=== PATIENT | female | born 1955 | race Caucasian/White ===

== ENCOUNTER → 2018-09-25 07:11 | Outpatient (CLI) | payer MEDICARE, OTHER, SELFPAY ==
[2018-09-25 09:41] LABS: Add Manual Diff / Slide Review NO; Basophils Percent Auto 0.8 % (0-2); Eosinophils Percent Auto 4.5 % (2-4); Hematocrit 37.6 % (36-46); Hemoglobin 12.6 g/dL (12.0-16.0); Lymphocytes Percent Auto 19.8 % (25-40); Mean Corpuscular HGB Conc 33.5 % (30-36); Mean Corpuscular Volume 86.7 fL (80-100); Monocytes Percent Auto 10.5 % (3-14); Neutrophils Absolute Auto 4200 /uL (3000-5900); Neutrophils Percent Auto 64.4 % (50-75); Platelet Count 186 X10^3/uL (150-400); Red Blood Cell Count 4.33 X10^6/uL (4.0-5.2); Red Cell Distribution Width 13.1 % (11.6-14.8); White Blood Cell Count 6.5 X10^3/uL (4.5-11.0)
[2018-09-25 09:51] LABS: Alanine Aminotransferase 53 IU/L (9-52); Albumin 4.3 g/dL (3.5-5.0); Albumin Globulin Ratio 1.5 (1.0-2.8); Alkaline Phosphatase 61 U/L (38-126); Aspartate Aminotransferase 42 IU/L (14-36); Bilirubin Total 0.4 mg/dL (0.2-1.3); Blood Urea Nitrogen 24 mg/dL (7-17); Calcium 9.4 mg/dL (8.4-10.2); Carbon Dioxide 32 mmol/L (22-32); Chloride 102 mmol/L (98-107); Cholesterol 160 mg/dL (140-199); Estimated Glomerular Filt Rate > 60.0 mL/min (>60); Globulin 2.9 g/dL (1.7-4.1); Glucose 85 mg/dL (80-110); HDL Cholesterol 43 mg/dL (40-60); HEMOLYSIS < 15 (0-50); LDL Cholesterol Calculated 104 mg/dL (<100); Potassium 3.9 mmol/L (3.4-5.1); Sodium 147 mmol/L (137-145); Total Protein 7.2 g/dL (6.3-8.2); Triglycerides 67 mg/dL (35-150)
--- NOTE | 2018-09-25 13:22 | DI.MG.S_ITS ---
Patient Name: TAY PAYNE date: 1955 Sex: F Attending Physician: Titi Indications: Date: 09/25/2018 07:59 At the request of: KRUPA HARVEY Procedure: MM screening mammo BI BILATERAL DIGITAL SCREENING MAMMOGRAM 3D/2D WITH CAD: 09/25/2018 CLINICAL: Routine screening. Family history of breast cancer. Comparison is made to exams dated: 09/15/2015 mammogram, 07/17/2013 mammogram, and 12/15/2010 mammogram - [facility]. The tissue of both breasts is extremely dense, which lowers the sensitivity of mammography. Current study was also evaluated with a Computer Aided Detection (CAD) system. There is architectural distortion in the right breast at 2 o'clock anterior depth. There is a focal asymmetry in the left breast at 1 o'clock middle depth. No other significant masses or calcifications are seen in either breast. IMPRESSION: INCOMPLETE: NEEDS ADDITIONAL IMAGING EVALUATION The architectural distortion in the right breast at 2 o'clock anterior depth is indeterminate. Additional views with possible ultrasound are recommended. The focal asymmetry in the left breast at 1 o'clock middle depth is indeterminate. Additional views with possible ultrasound are recommended. NOTE: For mammograms, a report in lay terms will be sent to the patient. Approximately 15% of breast malignancies will not be visualized mammographically. In the management of a palpable breast mass, a negative mammogram must not discourage biopsy of a clinically suspicious lesion. Electronically Signed By: Jessica mckeon/patel:09/25/2018 13:22:16 letter sent: Additional Imaging Needed ACR BI-RADS Category 0: Incomplete [id number] Continued Report - Page 2 of 2 Patient Name: TAY PAYNE date: 1955 Sex: F Attending Physician: Titi Indications: Date: 09/25/2018 07:59 At the request of: KRUPA HARVEY Procedure: MM screening mammo BI
[2018-09-25 23:15] LABS: Thyroid Stimulating Hormone 0.23 uIU/mL (0.47-4.68)
[2018-09-26 03:25] LABS: Free T3, Triiodothyronine Free 3.42 pg/mL (2.77-5.27); Free T4, Direct Thyroxine 1.53 ng/dL (0.78-2.19)
== END ==
PROVIDERS: Visit Provider Family Medicine
DX: Z12.31 Encounter for screening mammogram for malignant neoplasm of breast (principal); E03.9 Hypothyroidism, unspecified; Z80.3 Family history of malignant neoplasm of breast; Z79.1 Long term (current) use of non-steroidal anti-inflammatories (NSAID)
CPT/HCPCS: 36415; 77063; 77067; 80053; 80061; 84439; 84443; 84481; 85025

== ENCOUNTER → 2018-10-17 12:30 | Outpatient (CLI) | payer MEDICARE, OTHER, SELFPAY ==
--- NOTE | 2018-10-17 12:32 | DI.US.S_ITS ---
PROCEDURE: US BREAST LT LIMITED COMPARISON: [facility], BREAST RT LIMITED, 10/17/2018, 13:44. INDICATIONS: Abnormal screening Mammogram FINDINGS: IMPRESSION: Dictated by: Chele Grande M.D. on 10/17/2018 at 19:10 Approved by: Chele Grande M.D. on 10/17/2018 at 19:15
--- NOTE | 2018-10-17 12:32 | DI.US.S_ITS ---
LIMITED ULTRASOUND OF RIGHT BREAST AND AXILLA: 10/17/2018 CLINICAL: Patient returns for additional imaging over a suspected mass in the right breast. Comparison is made to exams dated: 10/17/2018 mammogram, 09/25/2018 mammogram, and 09/15/2015 mammogram - [facility]. Real-time and Doppler ultrasound of the right breast 2 o'clock, and axilla regions were performed. Bella scale images of the real-time examination were reviewed. There is 0.9 cm x 0.8 cm x 0.6 cm irregular mass with an indistinct margin in the right breast at 2 o'clock 4 cm from the nipple. This irregular mass is hypoechoic with posterior acoustic shadowing. This correlates with mammography findings. Color flow imaging demonstrates that there is no vascularity present. There also is 0.7 cm x 0.4 cm x 0.4 cm irregular mass with an indistinct margin in the right breast at 2 o'clock 4 cm from the nipple. This mass is immediately adjacent the larger mass described above. This irregular mass is hypoechoic with posterior acoustic shadowing. This correlates with mammography findings. Color flow imaging demonstrates that there is no vascularity present. Targeted ultrasound of the right axilla demonstrates morphologically normal lymph nodes. IMPRESSION: SUSPICIOUS OF MALIGNANCY 1) The 0.9 cm x 0.8 cm x 0.6 cm irregular mass in the right breast at 2 o'clock is at a moderate suspicion for malignancy. An ultrasound guided biopsy is recommended. 2) The 0.7 cm x 0.4 cm x 0.4 cm irregular mass in the right breast at 2 o'clock is at a moderate suspicion for malignancy. An ultrasound guided biopsy is recommended. These results and recommendations were discussed with the patient at the time of the exam by the [facility] Radiologist Dr. Ole Davidson in person. This exam was interpreted at Station ID: [id number]. Electronically Signed By: Chele Grande M.D. ecl/:10/17/2018 19:09:28 letter sent: Biopsy Required Ultrasound BI-RADS: 4c Suspicious abnormality - moderate concern but not classic for malignancy
--- NOTE | 2018-10-17 12:32 | DI.MG.S_ITS ---
BILATERAL DIGITAL DIAGNOSTIC MAMMOGRAM 3D/2D WITH ADDITIONAL VIEWS: 10/17/2018 CLINICAL: Additional evaluation requested from prior study. Comparison is made to exams dated: 09/25/2018 mammogram, 09/15/2015 mammogram, and 07/17/2013 mammogram - [facility]. The tissue of both breasts is extremely dense, which lowers the sensitivity of mammography. Previously identified architectural distortion in the right breast at 2 o'clock anterior depth on comparison screening mammograms persists with additional views. Previously noted focal asymmetry in the left breast at 1 o'clock middle depth on comparison screening mammogram resolves with additional views and likely represented superimposition of benign anatomic tissues. No other significant masses, calcifications, or other findings are seen in either breast. IMPRESSION: INCOMPLETE: NEEDS ADDITIONAL IMAGING EVALUATION 1) Previously identified architectural distortion in the right breast at 2 o'clock anterior depth on comparison screening mammograms persists with additional views. A targeted ultrasound is recommended for further evaluation, and will be performed immediately following this exam. 2) Previously noted focal asymmetry in the left breast at 1 o'clock middle depth on comparison screening mammogram resolves with additional views and likely represented superimposition of benign anatomic tissues. A targeted ultrasound is recommended for further evaluation, and will be performed immediately following this exam. This exam was interpreted at Station ID: [id number]. NOTE: For mammograms, a report in lay terms will be sent to the patient. Approximately 15% of breast malignancies will not be visualized mammographically. In the management of a palpable breast mass, a negative mammogram must not discourage biopsy of a clinically suspicious lesion. Electronically Signed By: Chele Grande M.D. ecl/:10/17/2018 13:36:08 letter sent: Additional Imaging Needed ACR BI-RADS Category 0: Incomplete [id number]
== END ==
PROVIDERS: PCP Family Medicine; Visit Provider Family Medicine
DX: R92.8 Other abnormal and inconclusive findings on diagnostic imaging of breast (principal); N63.12 Unspecified lump in the right breast, upper inner quadrant
CPT/HCPCS: 76642; 77066; G0279

== ENCOUNTER → 2018-11-14 11:21 | Outpatient (CLI) | payer MEDICARE, OTHER, SELFPAY ==
--- NOTE | 2018-11-14 | DI.MG.S_ITS ---
UNILATERAL RIGHT DIGITAL DIAGNOSTIC MAMMOGRAM POST-EXCISIONAL BIOPSY: 11/14/2018 CLINICAL: Post clip placement. Comparison is made to exams dated: 10/17/2018 mammogram, 09/25/2018 mammogram, and 09/15/2015 mammogram - [facility]. The tissue of right breast is extremely dense, which lowers the sensitivity of mammography. There is no visualized marker clip in the appropriate position in the right breast at 2 o'clock middle depth. IMPRESSION: POST PROCEDURE MAMMOGRAM FOR MARKER PLACEMENT Marker clip not visualized. If needed recommend localization of the biopsy site with ultrasound since the biopsied lesion remains quite sonographically visible. This exam was interpreted at Station ID: [id number]. NOTE: For mammograms, a report in lay terms will be sent to the patient. Approximately 15% of breast malignancies will not be visualized mammographically. In the management of a palpable breast mass, a negative mammogram must not discourage biopsy of a clinically suspicious lesion. Electronically Signed By: Mitul zarate/:11/14/2018 17:14:09 ACR BI-RADS Category Post-procedure mammogram for marker placement
--- NOTE | 2018-11-14 | PATH_ITS ---
[facility] Accession Number: [id number] . 01 Material submitted: . RIGHT BREAST . 01 Clinical history: . 2:00 POSITION 4CM FN . 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 Tumor grade: - Nuclear pleomorphism: Low (1/3). - Mitotic rate: Low (1/3). - Tubular differentiation: Little or none (3/3). 2. Size of invasive carcinoma: Single largest dimension of 2 mm in this sample, present in 2 cores. 3. Ductal carcinoma in situ: Absent. Atypical Lobular Hyperplasia: Focally present. 4. Calcifications: Absent. 5. Lymphatic invasion: Absent. 6. Prognostic markers: - Estrogen receptor: Positive (80% tumor cell staining; staining intensity: moderate to strong). - Progesterone receptor: Positive (60% tumor cells staining: staining intensity: Strong). - HER-2 status: Negative for protein overexpression by immunohistochemistry (0 to 1+). MRV/11/18/2018 . 01 Comment: The invasive carcinoma morphologically has a lobular growth pattern (single cells filing, intracytoplasmic vacuoles), but also demonstrates rare glands formation. In addition, E-cadherin is stronly positive (membranous staining). Hence, the invasive carcinoma has both ductal and lobular features. . Dr. Walls's office (reported to nurse Ms. Cruz) is notified of the preliminary findings on this case on 11/15/2018 at 4:15 pm). . 01 Electronically signed: . Marquita Bauer MD, Pathologist NPI- [id number] . 01 Gross description: . Received one formalin-filled container labeled with the patient's name and designated right breast 2 o'clock position 4 cm FN. The sample is received with a plastic filter, sample loose in container and consists of multiple light yellow-sykes to sykes-oliver portions of tissue which range in size from 0.3 x 0.3 x 0.2 cm to 1.3 x 0.3 x 0.2 cm. The specimen is entirely submitted in one cassette. Collection date: 11/14/2018. Collection time per container: 1:36. Total fixation time: 12 hours, up to 24. ([id number]) /FRR . 01 Microscopic: . The invasive carcinoma morphologically has a lobular growth pattern (single cells filing, intracytoplasmic vacuoles), but also demonstrates rare glands formation. . Prognostic markers and e-cadherin immunostains are performed. The external controls stain appropriately. The invasive carcinoma stains as follows: . E-cadherin: Retained (membranous pattern, in support of ductal differentiation); e-cadherin is lost in the in-situ neoplastic proliferation, in support of atypical lobular hyperplasia. Estrogen receptor: Positive (80% tumor cells positive, staining intensity: moderate to strong); positive internal controls. Progesterone receptor: Positive (60 % tumor cells positive, staining intensity: strong); positive internal controls. HER-2: Negative for protein overexpression (0-1+). . The scoring criteria for breast biomarkers by immunohistochemistry is based on the current ASCO/CAP guidelines (Corin et al, Arch Pathol Lab Med 2010: 134(6): 907-922 / Alexis MCKEON et al, Arch Pathol Lab Med 2014: 138(2): 241-256). Deparaffinized sections of formalin fixed tissue (along with appropriate positive controls) are incubated with the above antibody(s). Using the automated [place] stainer, tissue is incubated with the designated antibody* which is then localized by a non-biotin, dual polymer detection system. The external controls are reviewed for appropriate reactivity and found to be adequate. Results on the target cell population are indicated above. These tests have not been validated on decalcified tissue. * This test was developed and its performance characteristics determined by [facility]. It has not been cleared or approved by the U.S. Food and Drug Administration. The FDA has determined that such clearance or approval is not necessary. This test is used for clinical purposes. It should not be regarded as investigational or for research. . 01 Pathologist provided ICD-10: C50.211 . 01 CPT . 985978, M12149, 356379 Performed at: [address], [place], [place] [id number] MD Ranjit Cabral MD Phone: [phone]
--- NOTE | 2018-11-14 11:29 | DI.MRI.S_ITS ---
PROCEDURE: MR CERVICAL SPINE WO CON INDICATIONS: ongoing neck pain, TECHNIQUE: Noncontrast sagittal T1 spin echo and T2 fast spin echo, sagittal STIR, foraminal oblique sagittal T2 fast spin echo, and axial gradient echo or T2 fast spin echo through the cervical spine. COMPARISON: None. FINDINGS: Image quality: Excellent. Alignment and Curvature: There is normal bony alignment. There straightening normal cervical spine curvature. Bone Marrow: Minimal reactive endplate changes noted adjacent to the C5-C6 and C6-C7 disc. Spinal Cord: Visualized spinal cord has normal size and signal. No cerebellar tonsillar herniation. Paraspinous Soft Tissues: No paravertebral masses. Prevertebral soft tissues are normal in thickness. C2-C3: Loss of disc signal. No central stenosis. No neural foraminal narrowing. No neural impingement. C3-C4: Loss of disc signal. Mild, diffuse disc bulge. Mild narrowing of the central canal. No neural foraminal narrowing. No neural impingement. C4-C5: Loss of disc signal. Mild, diffuse disc bulge. Mild to moderate narrowing of the central canal. No neural foraminal narrowing. No neural impingement. C5-C6: Loss of disc signal and height. Mild to moderate diffuse disc bulge. Moderate bilateral facet hypertrophy. Mild left uncovertebral joint hypertrophy. Severe narrowing of the central canal. Mild right and severe left neural foraminal narrowing with flattening deformity exiting left C6 nerve root. C6-C7: Loss of disc signal. Moderate, diffuse disc bulge. Small left central disc protrusion. Severe narrowing of the central canal with flattening deformity cervical spinal cord. Mild left facet hypertrophy. Mild right and moderate left neural foraminal narrowing. C7-T1: Loss of disc signal. No central stenosis. No neural foraminal narrowing. No neural impingement. IMPRESSION: 1. Multilevel degenerative disc disease. 2. Severe C5-C6 and C6-C7 central canal narrowing. Mild to moderate C4-C5 central canal narrowing. Mild C3-C4 central canal narrowing. 3. Mild right and severe left C5-C6 neural foraminal narrowing. Mild right and moderate left C6-C7 neural foraminal narrowing. 4. Flattened deformity cervical spinal cord to level of the C6-C7 disc secondary to central canal stenosis. 5. Flattened deformity of the exiting left C6 nerve root secondary to neural foraminal narrowing. Dictated by: Celi Romo MD, PhD on 11/14/2018 at 16:05 Approved by: Celi Romo MD, PhD on 11/14/2018 at 16:11
--- NOTE | 2018-11-14 11:29 | DI.US.S_ITS ---
ULTRASOUND GUIDED BIOPSY RIGHT BREAST USING VACUUM DEVICE WITH MARKING DEVICE INSERTED: 11/14/2018 CLINICAL: Right breast mass. PATIENT CONSENT: Risks (minor bleeding, infection, vasovagal reaction and repeat procedure), benefits and alternatives were explained to the patient and written informed consent was obtained. Correlation is made to exams dated: 10/17/2018 ultrasound, 10/17/2018 mammogram, 09/25/2018 mammogram, 09/15/2015 mammogram, 07/17/2013 mammogram, and 12/15/2010 mammogram - [facility]. An ultrasound guided biopsy using real-time ultrasound was performed for the indistinct mass located in the right breast at 2 o'clock posterior depth. The skin was prepped in the usual manner. The abnormality was approached from the lateral aspect. A biopsy needle was placed adjacent to the abnormality under ultrasound guidance. Once the needle was documented to be in the correct location, six specimens were obtained using the Mammotome biopsy system. A clip was inserted into the biopsy cavity. The specimens were sent to the laboratory for pathological analysis. IMPRESSION: ULTRASOUND GUIDED BIOPSY MALIGNANT Ultrasound guided biopsy of the mass in the right breast at 2 o'clock posterior depth was successful. Pathology indicates invasive carcinoma with ductal and lobular features. Pathology results are concordant with imaging findings. This exam was interpreted at Station ID: [id number]. Mitul zarate,linda/:11/20/2018 16:09:36
== END ==
PROVIDERS: PCP Family Medicine; Visit Provider Family Medicine
DX: C50.211 Malignant neoplasm of upper-inner quadrant of right female breast (principal); M50.31 Other cervical disc degeneration, high cervical region; M48.02 Spinal stenosis, cervical region; Z17.0 Estrogen receptor positive status [ER+]
CPT/HCPCS: 19083; 72141; 77065; 88305; 88342

== ENCOUNTER → 2018-11-28 09:51 | Outpatient (CLI) | payer MEDICARE, OTHER, SELFPAY ==
[2018-11-28 12:32] LABS: Alanine Aminotransferase 32 IU/L (9-52); Albumin 4.7 g/dL (3.5-5.0); Albumin Globulin Ratio 1.5 (1.0-2.8); Alkaline Phosphatase 52 U/L (38-126); Aspartate Aminotransferase 26 IU/L (14-36); Bilirubin Total 0.4 mg/dL (0.2-1.3); Blood Urea Nitrogen 27 mg/dL (7-17); Calcium 9.8 mg/dL (8.4-10.2); Carbon Dioxide 27 mmol/L (22-32); Chloride 105 mmol/L (98-107); Estimated Glomerular Filt Rate 55.6 mL/min (>60); Globulin 3.2 g/dL (1.7-4.1); Glucose 74 mg/dL (80-110); HEMOLYSIS < 15 (0-50); Potassium 4.8 mmol/L (3.4-5.1); Sodium 143 mmol/L (137-145); Total Protein 7.9 g/dL (6.3-8.2)
--- NOTE | 2018-11-28 14:09 | DI.MRI.S_ITS ---
PROCEDURE: MR BREAST BI WO/W CON INDICATIONS: Invasive ductal carcinoma of the right breast with lobular features. TECHNIQUE: The patient was placed prone in a dedicated breast imaging coil. Precontrast axial STIR and 3D FLASH without fat saturation sequences were obtained. Both before and after bolus injection of contrast, sequential 1-minute axial 3D FLASH with fat saturation sequences for 3 time points, with subtraction images and maximum intensity projections (MIP's) generated. Delayed sagittal FLASH images with fat saturation were also obtained. Computer-aided detection, including computer algorithm analysis of MRI image data for lesion detection and characterization, pharmacokinetic analysis, with further physician review for interpretation, was performed. COMPARISON: [facility], US, US BREAST RT LIMITED, 10/17/2018, 13:44. [facility], CT, PULMOGRAM (THORAX WO CONTRAST), 03/08/2009, 10:56. [facility], , MM DIAGNOSTIC MAMMO BI, 10/17/2018, 13:11. Merged with [facility], BILATERAL SCREENING MAMMOGRAM, 09/15/2015, 9:07. FINDINGS: Image quality: Excellent. There is mild background parenchymal enhancement. Right breast: The in the right breast 2:00 axis approximately 3.5 cm behind the nipple, there is an irregular enhancing mass measuring approximately 9 mm in maximum dimension which is consistent with biopsy-proven malignancy. A smaller, 5 mm irregular mass is seen immediately adjacent and more posterior to this mass. Both masses span an area of approximately 1.5 cm in size. There is a morphologically normal appearing lymph node identified in the far posterior, lateral right breast. No right-sided axillary or internal mammary chain adenopathy. There is a well-circumscribed, oval, T2 hyperintense mass along the far, posterior wall of the right upper, outer breast that is hypointense on T1 and demonstrates no enhancement. This is likely a cyst. Left breast: There is no suspicious mass, architectural distortion, non-mass enhancement, or suspicious skin/nipple abnormalities. No left axillary or internal mammary chain adenopathy. Miscellaneous: In the far lateral left axilla/chest wall there is a focal area of enhancement that is likely related to a vascular structure. This does not have the morphology of the normal or abnormal lymph node. IMPRESSION: #1. A 9 mm irregular mass in the 2:00 axis of the right breast compatible with biopsy-proven malignancy with a smaller, 5 mm irregular mass immediately adjacent and posterior to the index lesion. No right-sided axillary or internal mammary chain adenopathy. 2. Left breast without MRI evidence for malignancy. BIRADS 6, known biopsy-proven malignancy COMMENT: The imaging literature indicates that a negative contrast breast MRI examination has a high sensitivity and a moderate specificity for detecting and excluding invasive carcinomas to a detection threshold of 3-5 mm; nonetheless, appropriate clinical and mammographic follow-up are recommended. MRI is not sensitive for detecting DCIS (ductal carcinoma in situ) and may not detect large invasive neoplasms that show only minimal enhancement such as mucinous carcinoma. If there are suspicious calcifications or clinically worrisome palpable masses, then biopsy should still be considered. Invasive neoplasms can be hidden by co-existent and benign enhancement caused by mastitis, hormone therapy effects, radiation therapy, , and recent biopsy or surgery. False positive examinations can occur in a number of circumstances, including breasts that have recently been subject to invasive procedures and those that contain atypical ductal hyperplasia, hormonally stimulated glandular tissue, fat necrosis, or radial scars. Dictated by: Alejo Cuadra M.D. on 11/29/2018 at 9:26 Transcribed by: JAVIER on 11/29/2018 at 10:02 Approved by: Alejo Cuadra M.D. on 12/06/2018 at 16:49
== END ==
PROVIDERS: PCP Family Medicine; Visit Provider Family Medicine
DX: Z01.818 Encounter for other preprocedural examination (principal); C50.211 Malignant neoplasm of upper-inner quadrant of right female breast
CPT/HCPCS: 36415; 77049; 80053; A9579

== ENCOUNTER 2018-12-18 07:14 | Day surgery (SDC) | payer MEDICARE, OTHER, SELFPAY ==
[2018-12-16 08:19] VITALS: BMI 19.8
[2018-12-18] VITALS (9 sets, daily range): BP systolic 129–161; BP diastolic 60–86; PULSE 64–80; RESP 12–18; TEMP 36.6–37.1; O2SAT 95–100; BMI 19.8
--- NOTE | 2018-12-18 | DI.MG.S_ITS ---
SPECIMEN: 12/18/2018 CLINICAL: Right breast specimen. Correlation is made to exams dated: 12/18/2018 mammogram, 11/14/2018 mammogram, and 10/17/2018 mammogram - [facility]. The specimen mammogram contains the mass and the localization wire. The prior US guided biopsy did not include a successful localizaiton clip deployment at the biopsy site. IMPRESSION: SPECIMEN Surgical specimen as expected with mass and wire but the US localization clip did not successfully deploy during prior biopsy and thus is absent from the specimen. This exam was interpreted at Station ID: [id number]. Ashish Corral M.D. sdh/:12/18/2018 16:22:02
--- NOTE | 2018-12-18 | DI.NM.S_ITS ---
PROCEDURE: NM SENTINEL NODE W IMAGING RADIOPHARMACEUTICAL: 0.5-1.0 mCi Millipore filtered Tc-99m sulfur colloid. INDICATIONS: RIGHT BREAST CANCER TECHNIQUE: The area around the nipple was prepped and draped in a sterile fashion. Tc-99m sulfur colloid was injected intra-dermally in the outer edge of the areola in the right breast. Images were obtained subsequently. A body contour outline was obtained. FINDINGS: There is a single identified lymph node in the ipsilateral axilla, which is marked on the skin and the images for referring physician. IMPRESSION: Administration of radiotracer into the right breast periareolar region for intra-operative sentinel lymph node localization. Dictated by: Ashish Corral M.D. on 12/18/2018 at 10:36 Approved by: Ashish Corral M.D. on 12/18/2018 at 10:37
--- NOTE | 2018-12-18 | DI.MG.S_ITS ---
UNILATERAL RIGHT DIGITAL DIAGNOSTIC MAMMOGRAM: 12/18/2018 CLINICAL: Post wire localization under ultrasound. Comparison is made to exams dated: 11/14/2018 mammogram, 10/17/2018 mammogram, and 09/25/2018 mammogram - [facility]. The tissue of right breast is extremely dense, which lowers the sensitivity of mammography. There is a localization wire targeted by US to the mass in the right breast at 2 o'clock anterior depth, wire seen in two views. IMPRESSION: KNOWN BIOPSY PROVEN MALIGNANCY The mass in the right breast was localized by wire for breast surgery excision today. This exam was interpreted at Station ID: [id number]. NOTE: For mammograms, a report in lay terms will be sent to the patient. Approximately 15% of breast malignancies will not be visualized mammographically. In the management of a palpable breast mass, a negative mammogram must not discourage biopsy of a clinically suspicious lesion. Electronically Signed By: Ashish Corral M.D. [facility]/:12/18/2018 16:17:03 ACR BI-RADS Category 6: Known biopsy proven malignancy [id number]
--- NOTE | 2018-12-18 | PATH_ITS ---
[facility] Accession Number: [id number] . 01 Material submitted: . PART A: RIGHT AXILLARY SENTINEL NODE PART B: RIGHT BREAST MASS . 01 Clinical history: . A: RIGHT AXILLARY SENTINEL NODE 14,209 READING B: SUTURE..SHORT SUPERIOR, LONG LATERAL.. WIRE MEDIAL . 01 Diagnosis: A. Right axillary sentinel lymph node, Biopsy: Isolated tumor cells (2-3 tumor cells) are present in one of one lymph node; confirmed by immunohistochemistry. . B. Right Breast mass, Partial Mastectomy: Invasive carcinoma, with ductal and lobular features, grade 2 of 3 (Perkins combined histologic grade, total score 6/9). - Tumor Size (Invasive component): 1.2 cm (by microscopic measurement). - Nuclear Pleomorphism: Intermediate (2/3). - Mitotic Rate: Low (1/3). - Tubular Differentiation: Little or none (3/3). - Ductal Carcinoma In Situ: Absent. Atypical Lobular Hyperplasia/Lobular carcinoma in situ: Present. - Calcifications: Present in assiociation with benign breast tissue. - Lymphatic Invasion: Not identified. - Resection Margins: - Invasive Carcinoma: Negative, but very close; carcinoma is <0.05 cm from the anterior, superior, and lateral margins, 0.5 cm from the posterior margin, and >1.0 cm from the remaining margins. - Prognostic Markers: Performed on the prior biopsy ( ) - Estrogen Receptor: Positive. - Progesterone Receptor: Positive. - HER-2 Status: Negative for protein overexpression. - Additional Findings: Biopsy site changes are present. - Pathologic Stage: pT1c pN0(i+,sn). 12/23/2018 . 01 Comment: The invasive carcinoma is predominantly single cells and filing, with occasional ducts formation based on morphology. E-cadherin and Beta-Catenin immunostains are performed, and are lost in a portion of the carcinoma, and retained in another. The carcinoma has both ductal and lobular features, based on morphology and immunohistochemistry. . 01 Electronically signed: . Marquita Bauer MD, Pathologist NPI- [id number] . 01 Gross description: . (A) Received in formalin, labeled right axillary sentinel node, is a lymph node (2.3 x 1.0 x 0.6 cm) with attached adipose tissue. Serially sectioned and entirely submitted in cassettes A1-A2. (B) Received in formalin, labeled right breast mass, wire medial, suture: short-superior, long-lateral. Specimen: Right partial mastectomy. Weight: 14 grams. Measurement: 1.1 cm anterior to posterior, up to 4.6 cm medial to lateral, and 4.6 cm superior to inferior. Skin ellipse: Absent. Wire: Present, penetrating at the anterior superomedial side and terminating in the central lateral aspect. Margins: Oriented with short superior suture, long lateral suture, medial wire, and inked as follows: anterior=purple; posterior=black; superior=blue; inferior=green; medial=yellow; lateral=orange. Sliced: Medial to lateral into 16 slices. Lesion: No nodules, masses or lesions are identified. A densely fibrous area (2.4 x 3.1 x 1.2 cm) is identified within slices #8-#16. The localization wire terminates between slices #13 and #14 within this fibrous area. Fixation time: The time the specimen was placed in formalin is not provided. The approximate total fixation time of 28 hours 30 minutes is calculated using a collection date of 12/18/2018 with an estimated collection time of 12:00. Sections: B1: slice #1, medial end of specimen, perpendicular. B2: slices #2 and #3. B3: slice #4. B4: slice #5. B5: slice #6. B6: slice #7, medial to densely fibrous area. B7: slice #8, densely fibrous area. B8: slice #9, fibrous area. B9-B10: slice #10, fibrous area. B11: slice #11, fibrous area. B12: slice #12, fibrous area. B13: slice #13, medial tissue involving the terminal end of the localization wire. B14: slice #14, lateral tissue involving the terminal end of the localization wire. B15: slice #15, fibrous area. B16: slice #16, lateral end of specimen, perpendicular. Specimen entirely submitted. Note: After slicing, the specimen was reviewed by Dr. Esther Bauer. ([id number]) /MRV . 01 Microscopic: . A. OWEN keratin immunostain is performed on A1 and A2. A2 demonstrates 2-3 positive cells. External controls stain appropriately. . B. Given the scant amount of carcinoma on the biopsy, and the ambiguous lineage (ductal and lobular features), E-cadherin and Beta-catenin immunostains are repeated on block B12. External controls stain appropriately. The invasive carcinoma shows loss of E-cadherin and Beta-catenin in half of the tissue on slide B12, and retention of these markers (strong membranous staining) in the other half. The carcinoma has both ductal and lobular features, based on morphology and immunohistochemistry. . The size of the carcinoma is estimated based on involvement of at least 4 slices, each measuring approximately 0.3 cm in thickness ( 1.2 cm). . Focally prominent perineural invasion is present. . * This test was developed and its performance characteristics determined by [employer]. It has not been cleared or approved by the U.S. Food and Drug Administration. The FDA has determined that such clearance or approval is not necessary. This test is used for clinical purposes. It should not be regarded as investigational or for research. . 01 Pathologist provided ICD-10: C50.911 . 01 CPT . 526748, E40998, P26762 Performed at: 01 [facility] [address] [place] [address], [place], [place] [id number] MD Ranjit Cabral MD Phone: [phone]
--- NOTE | 2018-12-18 07:17 | DI.US.S_ITS ---
ULTRASOUND GUIDED WIRE LOCALIZATION RIGHT BREAST WITH POST MAMMOGRAPHIC IMAGING AND RADIOGRAPHIC SPECIMEN IMAGIN12/18/2018 CLINICAL: Pre-op wire localization with ultrasound guidance. Correlation is made to exams dated: 11/28/2018 breast MRI, 11/14/2018 mammogram, 11/14/2018 ultrasound biopsy, 10/17/2018 ultrasound, 10/17/2018 mammogram, and 09/25/2018 mammogram - [facility]. A wire localization using ultrasound guidance was performed for the concerning 0.8 cm x 0.9 cm x 1 cm indistinct irregular shaped solid mass located in the right breast at 2 o'clock anterior depth. This was described on the previous ultrasound report. The skin was prepped in the usual manner. Local anesthetic was administered to the access site. The localization was approached from the medial aspect. A J-hook wire was inserted into the targeted area under ultrasound guidance. A sterile dressing was applied to the access site to remain during transport to surgery. Post placement mammographic imaging demonstrates the tip rests in the targeted area. Of note, the prior US guided biopsy procedure had intended to include placement of a biopsy localization marker, a Celero type, but that was not seen in the breast after that biopsy, nor was seen by this US, nor was seen on the post wire localization mammogram today. IMPRESSION: WIRE LOCALIZATION Wire localization for the 0.8 cm x 0.9 cm x 1 cm solid mass in the right breast at 2 o'clock anterior depth was successful. The imaged specimen includes the mass and the distal portion of the localization wire and does not include biopsy clip. The biopsy clip has never been documented as having been successfully deployed and is presumed by all imaging to be absent from the time of US guided biopsy previously performed. A specimen radiograph today has been obtained. This exam was interpreted at Station ID: [id number]. Ashish Corral M.D. [facility]/:12/18/2018 16:09:09
[2018-12-18] MEDS: MIDAZOLAM 2 MG/2 ML VIAL 1 MG IV (10:30)
--- NOTE | 2018-12-18 10:38 | SUR.OPER ---
Supine on padded OR bed, head on pillow, arms secured on padded arm boards at <90 degrees abduction, legs uncrossed, safety belt at thigh, tape over blanket over lower legs.
[2018-12-18] MEDS: LACTATED RINGERS 1,000 ML 42 ML IV (10:40)
[2018-12-18] MEDS: CEFAZOLIN 2 GM/100 ML FROZ.PIGGY IV (10:45)
[2018-12-18] MEDS: BUPIVACAINE 0.5% (PF) VIAL 30 ML INJ (11:27)
[2018-12-18] MEDS: LIDOCAINE 1% W/EPI INJ 20 ML INJ (11:28)
--- NOTE | 2018-12-18 12:01 | PM.OP.1 ---
Operative Date/Time/Diagnoses Date of procedure: 12/18/18 Time of procedure: 12:01 Pre-op diagnosis: Right breast cancer Post-op diagnosis: same Procedure & Clinicians Procedure: Right breast lumpectomy and sentinel node biopsy after needle localization in mapping Same procedure as scheduled: Yes Indications: Biopsy-proven right breast cancer Surgeon: Ale Noguera Click Yes if Unassisted: Yes Anesthesia Type: General (Dr. Longo ) and Local Operative Notes Findings: 1. A single sentinel node with a 10 sec count of 14,209. Background in the axilla of less than 10 2. Mass well centered within the specimen Closure Type: primary Specimen(s): other Estimated Blood Loss (mL): 10 Procedure in detail: After obtaining informed consent, the patient was brought to the operating room and placed in the supine position on the operating table. Following successful induction of general endotracheal anesthesia, appropriate padding of all bony prominences, and placement of appropriate monitors, the right chest and axilla were prepped and draped in the standard surgical fashion. A timeout was held per SCOAP protocol. Following injection of a mixture of local anesthetics into the axillary fold on the right side, an incision was created and carried down through the skin and subcutaneous tissue to enter the axillary fat pad below. The sentinel node was identified with the help of the navigator. All afferent and efferent lymphatics and vasculature were ligated. The sentinel node was then liberated from the surrounding structures. It was noted to have a 10 [place] [address]. The background in the axilla was less than 10 and background in the room was 0. The wound was carefully checked for hemostasis and aspirated free of all fluid and particulate matter. It was closed in 2 layers with Vicryl and Monocryl suture. We continued with lumpectomy on the right side. A curvilinear incision was created at the medial edge of the nipple-areolar complex in the upper inner quadrant of the right breast. Using traction and counter-traction the mass and localizing wire carefully dissected free from the underlying muscle, and surrounding breast tissue. The mass was delivered into the field and marked appropriately. It was sent for specimen x-ray. The wound was checked for hemostasis and irrigated with water. The radiologist called back into the room noting that the mass, wire, and clip were all located well within the specimen. The wound was checked once again for hemostasis. It was irrigated copiously with warm water and aspirated free of all fluid. The biopsy cavity was marked with clips. The wound was checked once again for hemostasis and then closed in layers with Vicryl Monocryl suture. Dermabond was applied to the skin incisions. Fluffs and a breast binder were applied. The patient tolerated the procedure very well. She was allowed to awaken from anesthesia and taken to the post-anesthesia care unit in good condition. All sponge, needle, and instrument counts were correct at the conclusion of the case. The patient was allowed to awaken from anesthesia without difficulty and taken to the postanesthesia care unit in good condition Complications: none Condition: stable Disposition: PACU Plan for aftercare: 1. Discharge to home 2. Follow up with me in my office in 2 weeks
--- NOTE | 2018-12-18 12:50 | SUR.PHASEII ---
Pt drowsy. Surgical sites CDI x2. Breast binder in place. Ice pack applied. Denied pain. Call light within reach. Spouse took rxs to the pharmacy.
== END 2018-12-18 13:50 | disposition home or self-care (01) ==
PROVIDERS: PCP Family Medicine; Visit Provider Surgery
PROC: (CPT 19301; principal; 2018-12-18 11:15)
DX: C50.911 Malignant neoplasm of unspecified site of right female breast (principal); F41.9 Anxiety disorder, unspecified; F33.41 Major depressive disorder, recurrent, in partial remission; G30.0 Alzheimer's disease with early onset; F02.80 Dementia in other diseases classified elsewhere, unspecified severity, without behavioral disturbance, psychotic disturbance, mood disturbance, and anxiety; Z87.891 Personal history of nicotine dependence; Z17.0 Estrogen receptor positive status [ER+]
CPT/HCPCS: 19301; 38500; 19285; 76098; 77065; 78195; 88307; 88341; 88342; A9541; J0690; J1100; J1885; J2250; J2704

== ENCOUNTER 2019-01-01 11:45 | Day surgery (SDC) | payer MEDICARE, OTHER, SELFPAY ==
[2019-01-01] VITALS (7 sets, daily range): BP systolic 123–162; BP diastolic 48–74; PULSE 68–98; RESP 6–20; TEMP 36.6–36.9; O2SAT 98–100; BMI 19.1
--- NOTE | 2019-01-01 | PATH_ITS ---
[facility] Accession Number: [id number] . 01 Material submitted: . RIGHT BREAST . 02 Diagnosis: Right Breast, Re-excision: 1. No residual invasive carcinoma identified. 2. Lobular carcinoma in-situ present. . [facility]/01/06/2019 . 02 Electronically signed: . Denise Boss MD, Pathologist NPI- [id number] . 01 Gross description: . Received in formalin, labeled right breast, short stitch superior, long stitch lateral, double anterior. . Specimen: Right partial mastectomy, re-excision. Weight: 7 grams. Measurement: 2.5 cm anterior to posterior, 2.5 cm medial to lateral, and 2.5 cm superior to inferior. Skin ellipse: Absent. Wire: Absent. Margins: Oriented with short superior suture, long lateral suture, and double anterior suture, and inked as follows: posterior=black; anterior=purple; superior=blue; inferior=green; medial=yellow; lateral=orange. Sliced: Anterior to posterior into seven slices. Biopsy marker: A clip is identified in slice #5 marking the reexcision cavity. Lesions: No masses, nodules, lesions or scirrhous irregular areas are identified. Other: The cut surfaces consist of the fibrous reexcision cavity and unremarkable adipose tissue. Fixation time: The specimen was placed in formalin on 01/01/2019 with no time given. The total fixation time is approximated using a collection time of 12 o'clock for a time of 33 hours 30 minutes. Sections: A1: anterior end of specimen, perpendicular. A2: slice #2. A3: slice #3. A4: slice #4. A5: slice #5, slice containing clip marking the reexcision cavity. A6: slice 6. A7: slice 7, posterior end of specimen, perpendicular. . Note: The specimen has been reviewed by Dr. Darryl Garcia. ([id number]) /MRV . 02 Microscopic: . Immunohistochemical stains were performed on block A3 to characterize an area of interest. The control stains showed appropriate reactivity. . RESULTS: p63: Present in myoepithelial cells around cells of interest. Myosin: Present in myoepithelial cells around cells of interest. E-cadherin: Negative in the cells of interest. . INTERPRETATION: The presence of p63 and Myosin surrounding the cells of interest is consistent with in-situ carcinoma. The absence of E-cadherin is consistent with a lobular carcinoma in-situ. . * This test was developed and its performance characteristics determined by [employer]. It has not been cleared or approved by the U.S. Food and Drug Administration. The FDA has determined that such clearance or approval is not necessary. This test is used for clinical purposes. It should not be regarded as investigational or for research. . 02 Pathologist provided ICD-10: C50.911 . 02 CPT . 630270, I12505, E17402 Performed at: 01 [facility] [address] [place] [address], [place], [place] [id number] MD Ranjit Cabral MD Phone: [phone] Performed at: 02 [facility] [address] [place] [id number] MD Denise Boss MD Phone: [phone]
[2019-01-01] MEDS: CEFAZOLIN 2 GM/100 ML FROZ.PIGGY IV (13:32)
--- NOTE | 2019-01-01 13:33 | P.HP_ITS ---
History of Present Illness Date Patient Seen: 01/01/19 Time Patient Seen: 13:32 Chief complaint: Right Breast Excision Narrative: Ashley is here for re-excision of margins of a right breast cancer. She recently underwent a right breast lumpectomy with clear but very close margins. She returns today to have the superior anterior and lateral margin re- excise to create a 2 mm margin of healthy tissue. She denies any changes in her health. Patient History Family & Social History Social History: household members spouse Tobacco & Substance use: Tobacco type cigarettes Smoking Status Former smoker alcohol intake never Substance Use Type does not use Meds Home Medications Medication Instructions Recorded Confirmed Type zoster vaccine live (PF) [Zostavax 0.5 ml SQ NOW #0.5 ml 11/21/16 12/30/18 Rx (PF)] levothyroxine [Synthroid] 75 mcg PO QDAY #30 tab 03/14/17 12/30/18 Rx fluticasone 50 mcg/actuation nasal 1 spray INTRANASAL BID #16 gm 07/30/18 12/30/18 Rx spray,suspension propranolol 20 mg tablet 20 mg PO QDAY #90 tab 10/04/18 12/30/18 Rx memantine 5 mg tablet 10 mg PO BID #120 tab 11/06/18 12/30/18 Rx liothyronine 5 mcg tablet 5 mcg PO 0600 #90 tab 11/21/18 12/30/18 Rx meloxicam 15 mg tablet 15 mg PO DAILY #30 tab 11/21/18 12/30/18 Rx ondansetron 4 mg PO QID PRN #14 tab 12/18/18 12/30/18 Rx oxycodone-acetaminophen 1 tab PO Q4-6H PRN #20 tab 12/18/18 12/30/18 Rx donepezil 10 mg tablet 10 mg PO DAILY #30 tab 12/24/18 12/30/18 Rx Allergies Allergy/AdvReac Type Severity Reaction Status Date / Time No Known Drug Allergies Allergy Verified 01/01/19 12:33 Review of Systems Review of Systems All systems reviewed & are unremarkable except as noted in HPI and below Exam Vital Signs (past 8 hours): - 01/01/19 12:05 Temperature 98.2 F Pulse Rate 80 Respiratory Rate 16 Blood Pressure 162/74 H Pulse Oximetry 100 Oxygen Delivery Method Room Air Narrative Exam Narrative: Well-nourished well-developed lady in no distress HEENT: Normocephalic and atraumatic, pupils equal round reactive to light accommodation with anicteric sclera Lungs: Clear bilaterally Heart: Regular rate and rhythm Abdomen: Soft, nontender, active bowel sounds Breast: Healing right medial areolar incision with associated ecchymosis. No palpable mass. Extremities: Warm and well perfused and without edema. Assessment & Plan Assessment & Plan narrative: Right breast cancer status post excision with close margins. We discussed the risks and benefits of re-excision of margins the patient expressed desire to have the procedure.
--- NOTE | 2019-01-01 13:57 | SUR.OPER ---
Supine on padded OR bed, head on pillow, arms secured on padded arm boards at <90 degrees abduction, legs uncrossed, safety belt at thigh, tape over blanket over lower legs. Pillow under knees.
[2019-01-01] MEDS: BUPIVACAINE 0.5% (PF) VIAL 30 ML INJ (14:11)
[2019-01-01] MEDS: LIDOCAINE 1% W/EPI INJ 20 ML INJ (14:13)
--- NOTE | 2019-01-01 14:15 | PM.OP.1 ---
Operative Date/Time/Diagnoses Date of procedure: 01/01/19 Time of procedure: 14:15 Pre-op diagnosis: Right breast cancer status post excision with narrow margins Post-op diagnosis: same Procedure & Clinicians Procedure: Re-excision of margins in the right breast Same procedure as scheduled: Yes Indications: Margin of 0.05 mm Surgeon: Ale Noguera Anesthesia Type: General (Dr. Donta lagunas) Operative Notes Findings: Small seroma cavity. Closure Type: primary Specimen(s): other (Upper outer portion of the lumpectomy cavity-marked for orientation) Estimated Blood Loss (mL): 5 Procedure in detail: After obtaining informed consent, the patient brought the operating room placed in the supine position on the operating table. Following successful induction of general endotracheal anesthesia, appropriate padding of all bony prominences, and placement of appropriate monitors, the right chest and breasts are prepped and draped in the standard surgical fashion. A time-out was held per SCOAP protocol. Following infiltration with local anesthetic to create a field block, the existing right periareolar incision is reopened and carried down through the skin and subcutaneous tissue. A small seroma containing ari thin fluid was aspirated. The upper outer quadrant including the anterior surface of the lumpectomy cavity was then excised sharply, marked for orientation and submitted as a specimen. The wound was checked for hemostasis. Additional clips were applied to darian the re-excision cavity. The wound was then irrigated with warm water and closed in layers with Vicryl and Monocryl suture. All sponge, needle, and instrument counts were correct at the conclusion of the case. The patient was allowed to wake from anesthesia without difficulty and taken to the postanesthesia care unit in good condition. Complications: none Condition: stable Disposition: PACU Plan for aftercare: 1. Discharge to home 2. Follow up with me in 2 weeks
[2019-01-01] MEDS: OXYCODONE IR 5 MG TABLET PO (14:54)
--- NOTE | 2019-01-01 15:34 | SUR.PHASEII ---
helping patient to dress and applying LANDEN wrap over binder.
--- NOTE | 2019-01-01 15:35 | SUR.PHASEII ---
DC teaching by Rubi Berman RN. Done with due to cognitive issues with patient.
== END 2019-01-01 15:33 | disposition home or self-care (01) ==
PROVIDERS: PCP Family Medicine; Visit Provider Surgery
PROC: (CPT 19301; principal; 2019-01-01 13:00)
DX: C50.911 Malignant neoplasm of unspecified site of right female breast (principal); Z87.891 Personal history of nicotine dependence
CPT/HCPCS: 19301; 88307; 88341; 88342; J0690; J1100; J1885; J2704

== ENCOUNTER → 2019-04-29 12:54 | Outpatient (CLI) | payer MEDICARE, OTHER, SELFPAY | PROVIDERS: PCP Family Medicine; Visit Provider Family Medicine | DX: M81.0 Age-related osteoporosis without current pathological fracture (principal); Z78.0 Asymptomatic menopausal state; E07.9 Disorder of thyroid, unspecified; Z87.891 Personal history of nicotine dependence | CPT/HCPCS: 77080 ==

== ENCOUNTER → 2019-08-21 13:28 | Outpatient (CLI) | payer MEDICARE, OTHER, SELFPAY ==
--- NOTE | 2019-08-21 | DI.MRI.S_ITS ---
PROCEDURE: MR CERVICAL SPINE WO CON INDICATIONS: Spinal stenosis, cervical region TECHNIQUE: Noncontrast sagittal T1 spin echo and T2 fast spin echo, sagittal STIR, foraminal oblique sagittal T2 fast spin echo, and axial gradient echo or T2 fast spin echo through the cervical spine. COMPARISON: None. FINDINGS: Image quality: Excellent. Alignment and Curvature: There is normal bony alignment. Bone Marrow: Marrow demonstrates normal overall signal. Spinal Cord: Visualized spinal cord has normal size and signal. No cerebellar tonsillar herniation. Paraspinous Soft Tissues: No paravertebral masses. Prevertebral soft tissues are normal in thickness. C2-C3: Loss of the signal. No central stenosis. No neural foraminal narrowing. No neural compression. C3-C4: Loss of the signal. Mild loss of disc height. Mild, diffuse disc bulge. Small right central disc protrusion. Mild narrowing of the central canal. No neural foraminal narrowing. No neural compression. C4-C5: Loss of disc signal. Mild loss of disc height. Mild, diffuse disc bulge. Mild narrowing of the central canal. No neural foraminal narrowing. No neural compression. C5-C6: Loss of disc signal and height. Moderate, diffuse disc bulge. Severe narrowing of the central canal with slight flattening deformity of the cervical spinal cord. Moderate right and mild left facet hypertrophy. Mild right and severe left uncovertebral joint hypertrophy. Moderate right and severe left neural foraminal narrowing with compression of the exiting left C6 nerve root. C6-C7: Loss of this signal. Mild, diffuse disc bulge. Large left central disc protrusion. Severe narrowing of the central canal with flattening deformity of the cervical spinal cord. Mild bilateral uncovertebral joint hypertrophy. Moderate bilateral neural foraminal narrowing. C7-T1: Loss of disc signal. No central stenosis. No neural foraminal narrowing. No neural compression. IMPRESSION: 1. Multilevel degenerative disc disease. 2. Severe C5-C6 and C6-C7 central canal narrowing. Mild C3-C4 and C4-C5 central canal narrowing. 3. Mild right and severe left C5-C6 neural foraminal narrowing. Moderate bilateral C6-C7 neural foraminal narrowing. 4. Compression of the cervical spinal cord at the level of C5-C6 and C6-C7 disc secondary to central canal narrowing. Large left central C6-C7 disc protrusion abuts and compresses the anterior left margin of the cervical spinal cord. 5. Compression of the exiting left C6 nerve root secondary to left C5-C6 neural foraminal narrowing. Dictated by: Celi Romo MD, PhD on 08/21/2019 at 16:06 Approved by: Celi Romo MD, PhD on 08/21/2019 at 16:14
== END ==
PROVIDERS: PCP Internal Medicine; Visit Provider Internal Medicine
DX: M48.02 Spinal stenosis, cervical region (principal); M50.31 Other cervical disc degeneration, high cervical region; M50.222 Other cervical disc displacement at C5-C6 level
CPT/HCPCS: 72141

== ENCOUNTER → 2019-09-03 13:22 | Outpatient (CLI) | payer MEDICARE, OTHER, SELFPAY ==
--- NOTE | 2019-09-03 | DI.US.S_ITS ---
ULTRASOUND OF LEFT BREAST: 09/03/2019 CLINICAL: Patient returns today to evaluate a density in the left breast. Comparison is made to exams dated: 09/03/2019 mammogram, 11/28/2018 breast MRI, 10/17/2018 mammogram, 09/25/2018 mammogram, 09/15/2015 mammogram, and 07/17/2013 mammogram - [facility]. Ultrasound of the left breast was performed on the area of interest. Bella scale images of the real-time examination were reviewed. IMPRESSION: NEGATIVE There is no sonographic evidence of malignancy. There is no abnormality seen in the left breast to correspond with the questionable mammography finding. This region is most consistent with normal fibroglandular tissue and is benign. Return to annual mammogram screening schedule is recommended. This exam was interpreted at Station ID: [id number]. Electronically Signed By: Jessica Mccallum M.D. lk/:09/03/2019 15:52:19 copy to: TERE RG copy to: LYLE SOLIZ copy to: EVERT GUEVARA letter sent: Normal Exam Ultrasound BI-RADS: 1 Negative
--- NOTE | 2019-09-03 | DI.MG.S_ITS ---
BILATERAL DIGITAL DIAGNOSTIC MAMMOGRAM 3D/2D POST LUMPECTOMY: 09/03/2019 CLINICAL: Right breast cancer. Comparison is made to exams dated: 10/17/2018 mammogram, 09/25/2018 mammogram, 09/15/2015 mammogram, and 12/18/2018 mammogram - [facility]. The tissue of both breasts is extremely dense, which lowers the sensitivity of mammography. There is a possible asymmetry in the left breast anterior depth superior region seen on the mediolateral oblique view only. This is less conspicuous on compression views. No other significant masses, calcifications, or other findings are seen in either breast. IMPRESSION: INCOMPLETE: NEEDS ADDITIONAL IMAGING EVALUATION The possible asymmetry in the left breast is indeterminate. A targeted ultrasound of the left breast is recommended and will be performed immediately following this exam. This exam was interpreted at Station ID: [id number]. NOTE: For mammograms, a report in lay terms will be sent to the patient. Approximately 15% of breast malignancies will not be visualized mammographically. In the management of a palpable breast mass, a negative mammogram must not discourage biopsy of a clinically suspicious lesion. Electronically Signed By: Jessica Mccallum M.D. lk/:09/03/2019 15:26:16 copy to: TERE RG copy to: LYLE SOLIZ copy to: EVERT GUEVARA ACR BI-RADS Category 0: Incomplete [id number]
== END ==
PROVIDERS: PCP Internal Medicine; Visit Provider Surgery
DX: R92.8 Other abnormal and inconclusive findings on diagnostic imaging of breast (principal)
CPT/HCPCS: 76642; 77066; G0279

== ENCOUNTER → 2019-12-09 12:23 | Outpatient (CLI) | payer MEDICARE, OTHER, SELFPAY | PROVIDERS: PCP Internal Medicine; Visit Provider Internal Medicine | DX: R63.4 Abnormal weight loss (principal); E03.9 Hypothyroidism, unspecified; R10.13 Epigastric pain | CPT/HCPCS: 80053; 81001; 82150; 83690; 84134; 84436; 84439; 84443; 85025 ==

== ENCOUNTER → 2019-12-12 12:00 | Outpatient (CLI) | payer MEDICARE, OTHER, SELFPAY ==
[2019-12-09 13:28] LABS: Add Manual Diff / Slide Review NO; Basophils Absolute Auto 0 /uL (0-100); Basophils Percent Auto 0.8 % (0-2); Eosinophils Absolute Auto 100 /uL (0-450); Eosinophils Percent Auto 2.2 % (2-4); Hematocrit 35.9 % (36-46); Hemoglobin 12.3 g/dL (12.0-16.0); Lymphocytes Absolute Auto 1000 /uL (1100-4500); Lymphocytes Percent Auto 18.7 % (25-40); Mean Corpuscular HGB Conc 34.4 % (30-36); Mean Corpuscular Hemoglobin 29.8 PG (26-34); Mean Corpuscular Volume 86.6 fL (80-100); Monocytes Absolute Auto 800 /uL (0-900); Monocytes Percent Auto 13.9 % (3-14); Neutrophils Absolute Auto 3500 /uL (1500-7000); Neutrophils Percent Auto 64.4 % (50-75); Platelet Count 212 X10^3/uL (150-400); Red Blood Cell Count 4.15 X10^6/uL (4.0-5.2); Red Cell Distribution Width 13.8 % (11.6-14.8); White Blood Cell Count 5.5 X10^3/uL (4.5-11.0)
[2019-12-09 13:39] LABS: Appearance Urine UA CLEAR; Bilirubin Urine UA NEGATIVE (NEGATIVE); Color Urine UA YELLOW; Glucose Urine UA NEGATIVE (Negative); Ketones Urine UA TRACE (NEGATIVE); Leukocyte Esterase Urine UA NEGATIVE (NEGATIVE); Nitrite Urine UA NEGATIVE (Negative); Occult Blood Urine UA TRACE-LYSED (Negative); Protein Urine UA TRACE (Negative); Specific Gravity Urine UA 1.015 (1.000-1.035); Urobilinogen Urine UA 0.2 E.U./dL (0.2)
[2019-12-09 13:41] LABS: Alanine Aminotransferase 30 IU/L (<35); Albumin 3.9 g/dL (3.5-5.0); Albumin Globulin Ratio 1.2 (1.0-2.8); Alkaline Phosphatase 69 U/L (38-126); Amylase 106 U/L (30-110); Aspartate Aminotransferase 33 IU/L (14-36); BUN Creatinine Ratio 22.2 (6-22); Bilirubin Total 0.3 mg/dL (0.2-1.3); Blood Urea Nitrogen 20 mg/dL (7-17); Carbon Dioxide 31 mmol/L (22-32); Chloride 103 mmol/L (98-107); Estimated Glomerular Filt Rate > 60.0 mL/min (>60); Globulin 3.3 g/dL (1.7-4.1); Glucose 115 mg/dL (80-110); HEMOLYSIS < 15 (0-50); Lipase 374 U/L (23-300); Potassium 3.6 mmol/L (3.4-5.1); Sodium 142 mmol/L (137-145); Total Protein 7.2 g/dL (6.3-8.2)
[2019-12-09 13:48] LABS: Prealbumin 12.9 mg/dL (17.6-36.0)
[2019-12-09 13:55] LABS: pH Urine UA 5.5 (4.5-8.0)
[2019-12-09 14:01] LABS: Bacteria Urine Moderate (10-30); Hyaline Casts Urine 1-5/LPF; Mucus Urine 1+ (Negative); RBC Urine 1-5/HPF (0-5/HPF); Squamous Epithelial Cell Urine 1-5 /HPF (0-5/HPF); WBC Urine 1-5/HPF (0-5/HPF)
[2019-12-09 14:02] LABS: Culture Indicated Urine Cult Not Indicated
[2019-12-09 14:45] LABS: TSH w/ Reflex to FT4 0.19 uIU/mL (0.47-4.68)
--- NOTE | 2019-12-12 | DI.CT.S_ITS ---
PROCEDURE: CT CHEST ABD PEL W CON INDICATIONS: Abnormal weight loss TECHNIQUE: After the administration of oral and intravenous contrast, 5 mm thick sections acquired from the lung apices to the symphysis. 5 mm coronal and sagittal reformats were performed, with additional 7 mm coronal MIP reformats through the lungs. For radiation dose reduction, the following was used: automated exposure control, adjustment of mA and/or kV according to patient size. COMPARISON: None. FINDINGS: Image quality: Excellent. CHEST: Lungs and pleura: No acute airspace opacities. There are 2 nodules in the left upper lobe measuring 2 mm each (5/77 and 133). No other suspicious lung nodules. No pleural effusions or pneumothorax. Central and peripheral airways appear patent and normal in caliber. Mediastinum: Heart size is normal. No pericardial effusion. No mediastinal or hilar adenopathy by size criteria. Thoracic aorta and central pulmonary arteries are normal in size. Esophagus is normal in caliber. No hiatal hernia. Chest wall: No axillary or supraclavicular adenopathy by size criteria. Thyroid gland is extremely diminutive. Surgical clips in the right axilla and right medial breast are seen.. ABDOMEN: Solid organs: Liver is normal in size and enhancement. There is a 5 mm, hypervascular, subcapsular nodule in segment IV of the liver. No other liver lesions. Gallbladder is decompressed. Biliary system is non dilated. Pancreas enhances normally. Spleen is normal in size and enhancement. No adrenal nodules. Kidneys demonstrate normal size and enhancement, without hydronephrosis. There are small cortical cysts each kidney. Peritoneum and bowel: The stomach and small bowel loops are normal. The distal colon is decompressed. Moderate diverticulosis and circumferential wall thickening seen along segments throughout the sigmoid colon. The rectum is also decompressed. No free fluid or air. Nodes and vessels: No retroperitoneal or mesenteric adenopathy by size criteria. Aorta and inferior vena cava are normal in size. Miscellaneous: No ventral hernias. PELVIS: Genitourinary: Bladder wall thickness is normal. Uterus and ovarian tissue are within normal limits. Miscellaneous: No inguinal hernias or adenopathy. Bones: No suspicious bony lesions. No vertebral body compression fractures. IMPRESSION: 1. Surgical changes of prior right breast lumpectomy and axillary node dissection. 2. 2 very tiny left upper lobe lung nodules, unlikely to be clinically significant. One year followup chest CT recommended to document stability. 3. 5 mm hypervascular subcapsular left lobe liver lesion. Etiology is uncertain. 4. Changes in the sigmoid of chronic diverticulitis. Dictated by: Karishma Thomas M.D. on 12/12/2019 at 16:04 Approved by: Karishma Thomas M.D. on 12/12/2019 at 16:19
== END ==
PROVIDERS: PCP Internal Medicine; Visit Provider Internal Medicine
DX: R10.13 Epigastric pain (principal); R63.4 Abnormal weight loss; R91.8 Other nonspecific abnormal finding of lung field; K76.89 Other specified diseases of liver; K57.30 Diverticulosis of large intestine without perforation or abscess without bleeding
CPT/HCPCS: 71260; 74177; Q9967

== ENCOUNTER → 2020-03-16 11:24 | Outpatient (CLI) | payer MEDICARE, OTHER, SELFPAY ==
[2020-03-16 11:37] LABS: RBC Urine None Seen (0-5/HPF); WBC Urine None Seen (0-5/HPF)
[2020-03-16 12:35] LABS: Appearance Urine UA CLEAR; Bilirubin Urine UA NEGATIVE (NEGATIVE); Color Urine UA YELLOW; Glucose Urine UA NEGATIVE (Negative); Ketones Urine UA NEGATIVE (NEGATIVE); Leukocyte Esterase Urine UA NEGATIVE (NEGATIVE); Nitrite Urine UA NEGATIVE (Negative); Occult Blood Urine UA TRACE-INTACT (Negative); Protein Urine UA NEGATIVE (Negative); Urobilinogen Urine UA 0.2 E.U./dL (0.2)
[2020-03-16 12:40] LABS: Squamous Epithelial Cell Urine 5-10 /HPF (0-5/HPF)
[2020-03-16 12:41] LABS: Bacteria Urine Few (2-10); Culture Indicated Urine Cult Not Indicated
[2020-03-16 12:47] LABS: Add Manual Diff / Slide Review NO; Basophils Absolute Auto 0 /uL (0-100); Basophils Percent Auto 0.6 % (0-2); Eosinophils Absolute Auto 300 /uL (0-450); Eosinophils Percent Auto 4.5 % (2-4); Hematocrit 39.5 % (36-46); Hemoglobin 13.3 g/dL (12.0-16.0); Lymphocytes Absolute Auto 1200 /uL (1100-4500); Lymphocytes Percent Auto 20.6 % (25-40); Mean Corpuscular HGB Conc 33.7 % (30-36); Mean Corpuscular Hemoglobin 29.8 PG (26-34); Mean Corpuscular Volume 88.4 fL (80-100); Monocytes Absolute Auto 600 /uL (0-900); Monocytes Percent Auto 9.7 % (3-14); Neutrophils Absolute Auto 3700 /uL (1500-7000); Neutrophils Percent Auto 64.6 % (50-75); Platelet Count 154 X10^3/uL (150-400); Red Blood Cell Count 4.47 X10^6/uL (4.0-5.2); Red Cell Distribution Width 14.2 % (11.6-14.8); White Blood Cell Count 5.7 X10^3/uL (4.5-11.0)
[2020-03-16 12:54] LABS: Alanine Aminotransferase 23 IU/L (<35); Albumin 4.3 g/dL (3.5-5.0); Albumin Globulin Ratio 1.3 (1.0-2.8); Alkaline Phosphatase 59 U/L (38-126); Amylase 167 U/L (30-110); Aspartate Aminotransferase 36 IU/L (14-36); BUN Creatinine Ratio 30.1 (6-22); Bilirubin Total 0.4 mg/dL (0.2-1.3); Blood Urea Nitrogen 28 mg/dL (7-17); Calcium 9.1 mg/dL (8.4-10.2); Carbon Dioxide 28 mmol/L (22-32); Chloride 103 mmol/L (98-107); Estimated Glomerular Filt Rate > 60.0 mL/min (>60); Globulin 3.2 g/dL (1.7-4.1); Glucose 82 mg/dL (80-110); HEMOLYSIS < 15 (0-50); Lipase 537 U/L (23-300); Potassium 4.3 mmol/L (3.4-5.1); Sodium 139 mmol/L (137-145); Total Protein 7.5 g/dL (6.3-8.2)
[2020-03-16 12:55] LABS: C-Reactive Protein Quant < 0.5 mg/dL (<1.0)
[2020-03-16 12:59] LABS: Prealbumin 20.8 mg/dL (17.6-36.0)
[2020-03-16 13:14] LABS: Erythrocyte Sedimentation Rate 3 MM/HR (0-20)
[2020-03-16 13:23] LABS: TSH w/ Reflex to FT4 1.58 uIU/mL (0.47-4.68)
[2020-03-17 07:17] LABS: Triiodothyronine T3 Total 81 ng/dL (71-180)
== END ==
PROVIDERS: PCP Internal Medicine; Referring Provider Physician Assistant; Visit Provider Internal Medicine
DX: R63.4 Abnormal weight loss (principal); E03.9 Hypothyroidism, unspecified; R10.13 Epigastric pain
CPT/HCPCS: 36415; 80053; 81001; 82150; 83690; 84134; 84436; 84443; 84480; 85025; 85651; 86140

== ENCOUNTER → 2020-08-13 09:23 | Outpatient (CLI) | payer MEDICARE, OTHER, SELFPAY ==
[2020-08-13 11:13] LABS: Add Manual Diff / Slide Review NO; Basophils Absolute Auto 0 /uL (0-100); Basophils Percent Auto 0.8 % (0-2); Eosinophils Absolute Auto 100 /uL (0-450); Eosinophils Percent Auto 2.4 % (2-4); Hematocrit 38.8 % (36-46); Hemoglobin 12.8 g/dL (12.0-16.0); Lymphocytes Absolute Auto 1000 /uL (1100-4500); Mean Corpuscular HGB Conc 32.9 % (30-36); Mean Corpuscular Hemoglobin 28.5 PG (26-34); Mean Corpuscular Volume 86.8 fL (80-100); Monocytes Absolute Auto 400 /uL (0-900); Monocytes Percent Auto 8.5 % (3-14); Neutrophils Absolute Auto 3600 /uL (1500-7000); Neutrophils Percent Auto 69.3 % (50-75); Platelet Count 144 X10^3/uL (150-400); Red Blood Cell Count 4.47 X10^6/uL (4.0-5.2); Red Cell Distribution Width 13.8 % (11.6-14.8); White Blood Cell Count 5.2 X10^3/uL (4.5-11.0)
[2020-08-13 12:36] LABS: Alanine Aminotransferase 23 IU/L (<35); Albumin Globulin Ratio 1.4 (1.0-2.8); Alkaline Phosphatase 74 U/L (38-126); Aspartate Aminotransferase 34 IU/L (14-36); BUN Creatinine Ratio 23.9 (6-22); Bilirubin Total 0.4 mg/dL (0.2-1.3); Blood Urea Nitrogen 21 mg/dL (7-17); Calcium 9.2 mg/dL (8.4-10.2); Carbon Dioxide 31 mmol/L (22-32); Chloride 104 mmol/L (98-107); Estimated Glomerular Filt Rate > 60.0 mL/min (>60); Globulin 2.8 g/dL (1.7-4.1); Glucose 77 mg/dL (80-110); HEMOLYSIS < 15 (0-50); Potassium 3.8 mmol/L (3.4-5.1); Sodium 141 mmol/L (137-145); Total Protein 6.8 g/dL (6.3-8.2)
[2020-08-13 12:49] LABS: Vitamin D 25 Hydroxy (D3) 37.4 ng/mL (30.0-100.0)
[2020-08-13 13:16] LABS: Ferritin 9 ng/mL (11-264)
[2020-08-13 13:26] LABS: TSH w/ Reflex to FT4 1.83 uIU/mL (0.47-4.68)
== END ==
PROVIDERS: PCP Internal Medicine; Referring Provider Internal Medicine; Visit Provider Internal Medicine
DX: I10 Essential (primary) hypertension (principal); R53.83 Other fatigue; L65.9 Nonscarring hair loss, unspecified; E03.9 Hypothyroidism, unspecified
CPT/HCPCS: 36415; 80053; 82088; 82306; 82728; 84244; 84443; 85025

== ENCOUNTER → 2020-09-24 14:22 | Outpatient (CLI) | payer MEDICARE, OTHER, SELFPAY ==
--- NOTE | 2020-09-24 14:23 | DI.MG.S_ITS ---
BILATERAL DIGITAL SCREENING MAMMOGRAM 3D/2D WITH CAD: 09/24/2020 CLINICAL: Routine screening. Personal history of right breast cancer. Family history of breast cancer. Comparison is made to exams dated: 09/03/2019 mammogram, 09/25/2018 mammogram, and 09/15/2015 mammogram - [facility]. The tissue of both breasts is extremely dense, which lowers the sensitivity of mammography. Current study was also evaluated with a Computer Aided Detection (CAD) system. There are benign post operative findings in the right breast. No significant masses, calcifications, or other findings are seen in either breast. There has been no significant interval change. IMPRESSION: BENIGN There is no mammographic evidence of malignancy. A 1 year screening mammogram is recommended. This exam was interpreted at Station ID: [id number]. NOTE: For mammograms, a report in lay terms will be sent to the patient. Approximately 15% of breast malignancies will not be visualized mammographically. In the management of a palpable breast mass, a negative mammogram must not discourage biopsy of a clinically suspicious lesion. Electronically Signed By: Jessica mckeon/patel:09/24/2020 15:18:04 copy to: TERE RG copy to: Jessica Noguera copy to: EVERT GUEVARA letter sent: Normal Exam ACR BI-RADS Category 2: Benign Finding(s) 3342F
== END ==
PROVIDERS: PCP Internal Medicine; Referring Provider Internal Medicine; Visit Provider Internal Medicine
DX: Z12.31 Encounter for screening mammogram for malignant neoplasm of breast (principal); Z85.3 Personal history of malignant neoplasm of breast; Z80.3 Family history of malignant neoplasm of breast
CPT/HCPCS: 77063; 77067

== ENCOUNTER → 2020-11-15 13:07 | Outpatient (CLI) | payer MEDICARE, OTHER, SELFPAY ==
--- NOTE | 2020-11-15 13:08 | DI.CT.S_ITS ---
PROCEDURE: CT CHEST WO CON INDICATIONS: Follow-up lung nodules in patient with history of breast can TECHNIQUE: Noncontrast 5 mm thick sections acquired from the pulmonary apices to the posterior costophrenic angles. 1 mm lung window, 5 mm thick coronal and sagittal and 7 mm axial MIP reformats were then acquired. For radiation dose reduction, the following was used: automated exposure control, adjustment of mA and/or kV according to patient size. COMPARISON: [facility], CT, CT CHEST ABD PEL W CON, 12/12/2019, 13:19. [facility], CT, PULMOGRAM (THORAX WO CONTRAST), 03/08/2009, 10:56. [facility], CT, CT ABDOMEN PELVIS WITH CONTRAST, 03/18/2020, 13:40. FINDINGS: Image quality: Excellent. Lungs and pleura: No acute air space opacities. No change in the small far lateral right middle lobe nodule seen currently on series 3, image 201 and also the several small thin areas of pleural undulation seen at the posterolateral left lower lobe. No new nodule has developed. The right middle lobe far lateral nodule is also present 03/08/09 as were the small undulations within the lower posterolateral and lateral pleural surface at that time. No pleural effusions or pneumothorax. Central and peripheral airways are patent and normal in caliber. Mediastinum: Heart size is normal. No pericardial effusion. No mediastinal adenopathy by size criteria. Thoracic aorta and central pulmonary arteries are normal in size. Esophagus is normal in caliber. No hiatal hernia. Bones and chest wall: No suspicious bony lesions. No vertebral body compression fractures. No axillary or supraclavicular adenopathy by size criteria. Thyroid gland appears normal where well seen . Abdomen: Visualized upper abdominal solid organs and bowel loops appear normal in the absence of contrast. IMPRESSION: A small far lateral right middle lobe lateral segment pulmonary nodule has been present since at least 9 as has the several areas of slight pleural nodular margination at the left lower lobe. No specific follow-up recommended for these findings. Dictated by: Ashish Corral M.D. on 11/15/2020 at 13:32 Approved by: Ashish Corral M.D. on 11/15/2020 at 13:42
== END ==
PROVIDERS: PCP Internal Medicine; Referring Provider Internal Medicine; Visit Provider Internal Medicine
DX: C50.911 Malignant neoplasm of unspecified site of right female breast; R91.8 Other nonspecific abnormal finding of lung field; Z17.0 Estrogen receptor positive status [ER+]
CPT/HCPCS: 71250

== ENCOUNTER → 2021-03-08 12:35 | Outpatient (CLI) | payer MEDICARE, OTHER, SELFPAY | PROVIDERS: PCP Internal Medicine; Referring Provider Internal Medicine; Visit Provider Internal Medicine | DX: M81.0 Age-related osteoporosis without current pathological fracture (principal) | CPT/HCPCS: 77080 ==

== ENCOUNTER → 2021-05-09 14:20 | Outpatient (CLI) | payer MEDICARE, OTHER, SELFPAY ==
[2021-05-09 15:26] LABS: Add Manual Diff / Slide Review NO; Basophils Absolute Auto 100 /uL (0-100); Basophils Percent Auto 0.9 % (0-2); Eosinophils Absolute Auto 200 /uL (0-450); Eosinophils Percent Auto 3.8 % (2-4); Hematocrit 34.6 % (36-46); Hemoglobin 11.2 g/dL (12.0-16.0); Lymphocytes Absolute Auto 1400 /uL (1100-4500); Lymphocytes Percent Auto 21.7 % (25-40); Mean Corpuscular HGB Conc 32.3 % (30-36); Mean Corpuscular Hemoglobin 27.9 PG (26-34); Mean Corpuscular Volume 86.4 fL (80-100); Monocytes Absolute Auto 700 /uL (0-900); Monocytes Percent Auto 10.4 % (3-14); Neutrophils Absolute Auto 4100 /uL (1500-7000); Neutrophils Percent Auto 63.2 % (50-75); Platelet Count 186 X10^3/uL (150-400); Red Blood Cell Count 4.01 X10^6/uL (4.0-5.2); Red Cell Distribution Width 14.6 % (11.6-14.8); White Blood Cell Count 6.4 X10^3/uL (4.5-11.0)
[2021-05-09 15:36] LABS: Alanine Aminotransferase 19 IU/L (<35); Albumin Globulin Ratio 1.3 (1.0-2.8); Alkaline Phosphatase 73 U/L (38-126); Aspartate Aminotransferase 34 IU/L (14-36); BUN Creatinine Ratio 20.4 (6-22); Bilirubin Total 0.2 mg/dL (0.2-1.3); Blood Urea Nitrogen 22 mg/dL (7-17); Calcium 9.2 mg/dL (8.4-10.2); Carbon Dioxide 29 mmol/L (22-32); Chloride 106 mmol/L (98-107); Estimated Glomerular Filt Rate 50.5 mL/min (>60); Globulin 3.2 g/dL (1.7-4.1); Glucose 91 mg/dL (80-110); HEMOLYSIS < 15 (0-50); Potassium 4.6 mmol/L (3.4-5.1); Sodium 140 mmol/L (137-145); Total Protein 7.2 g/dL (6.3-8.2)
== END ==
PROVIDERS: Internal Medicine; PCP Internal Medicine; Referring Provider Internal Medicine Hematology & Oncology; Visit Provider Internal Medicine Hematology & Oncology
DX: C50.911 Malignant neoplasm of unspecified site of right female breast (principal)
CPT/HCPCS: 36415; 80053; 85025

== ENCOUNTER → 2021-11-14 14:48 | Outpatient (CLI) | payer MEDICARE, OTHER, SELFPAY ==
--- NOTE | 2021-11-14 14:51 | DI.MG.S_ITS ---
BILATERAL DIGITAL SCREENING MAMMOGRAM 3D/2D WITH CAD: 11/14/2021 CLINICAL: Routine screening. Personal history of right breast cancer. Family history of breast cancer. Comparison is made to exams dated: 09/24/2020 mammogram, 09/03/2019 mammogram, 12/18/2018 mammogram, and 11/14/2018 mammogram - [facility]. The tissue of both breasts is heterogeneously dense. This may lower the sensitivity of mammography. Current study was also evaluated with a Computer Aided Detection (CAD) system. There are benign post operative findings in the right breast. No significant masses, calcifications, or other findings are seen in either breast. There has been no significant interval change. IMPRESSION: BENIGN There is no mammographic evidence of malignancy. A 1 year screening mammogram is recommended. This exam was interpreted at Station ID: [id number]. NOTE: For mammograms, a report in lay terms will be sent to the patient. Approximately 15% of breast malignancies will not be visualized mammographically. In the management of a palpable breast mass, a negative mammogram must not discourage biopsy of a clinically suspicious lesion. Electronically Signed By: Karishma azul/patel:11/14/2021 16:15:17 copy to: TERE RG copy to: Jessica Noguera copy to: EVERT GUEVARA letter sent: Normal Exam ACR BI-RADS Category 2: Benign Finding(s) 3342F
== END ==
PROVIDERS: PCP Internal Medicine; Referring Provider Internal Medicine Hematology & Oncology; Visit Provider Internal Medicine Hematology & Oncology
DX: Z12.31 Encounter for screening mammogram for malignant neoplasm of breast (principal); C50.911 Malignant neoplasm of unspecified site of right female breast; Z17.0 Estrogen receptor positive status [ER+]; Z80.3 Family history of malignant neoplasm of breast
CPT/HCPCS: 77063; 77067

== ENCOUNTER → 2022-05-24 11:57 | Outpatient (CLI) | payer MEDICARE, OTHER, SELFPAY ==
--- NOTE | 2022-05-24 11:59 | DI.CT.S_ITS ---
PROCEDURE: CT ABDOMEN PELVIS W CON INDICATIONS: elevated liver function tests, history of breast cancer TECHNIQUE: After the administration of oral and IV contrast, axial sections were acquired from the lung bases to the pubic symphysis. Coronal and sagittal reformats were performed. For radiation dose reduction, the following was used: automated exposure control, adjustment of mA and/or kV according to patient size. COMPARISON: [facility], CT, CT ABDOMEN PELVIS WITH CONTRAST, 03/18/2020, 13:40. FINDINGS: Image quality: Excellent. Lung bases: Stable 3 mm juxta fissural nodule in the right middle lobe laterally (7/3). Stable small left lower lobe pleural based nodules. Heart: No significant findings. ABDOMEN: Liver: No suspicious liver mass. Gallbladder: Unremarkable. Biliary ducts: Unremarkable. Pancreas: Unremarkable. Spleen: Unremarkable. Adrenal Glands: Unremarkable. Kidneys and Ureters: An exophytic cyst is seen at the inferior pole of the right kidney, which has mildly increased in size and now measures 1.3 cm. Stomach and Bowel: Small bowel loops are unremarkable. Normal appendix. A few diverticula are seen in the sigmoid colon without signs of acute diverticulitis. Peritoneum: No abnormal intraperitoneal fluid. No free air. Ventral Wall: No hernia. Abdominal Nodes: No retroperitoneal or mesenteric adenopathy by size criteria. Vessels: Aorta and inferior vena cava are normal in size. Mild aortic atherosclerosis. PELVIS: Pelvic Organs: Nabothian cysts are seen in the cervix. The endometrial stripe measures approximately 7 mm in thickness. The uterus is overall normal in size. No adnexal mass is seen. Bladder: Unremarkable. Pelvic Nodes: No enlarged lymph nodes. Miscellaneous: No inguinal hernias are seen. Bones: No suspicious osteolytic or osteoblastic lesion is seen. IMPRESSION: 1. No hepatic mass or signs of biliary obstruction or seen to explain patient's elevated liver function tests. 2. No bulky lymphadenopathy in the abdomen or pelvis. 3. Thickening of the endometrium to 7 mm is of uncertain significance in the absence of postmenopausal bleeding. Consider pelvic ultrasound for further evaluation. Dictated by: Keshawn Hussein M.D. on 05/24/2022 at 19:59 Approved by: Keshawn Hussein M.D. on 05/24/2022 at 20:10
== END ==
PROVIDERS: PCP Physician Assistant; Referring Provider Internal Medicine Medical Oncology; Visit Provider Internal Medicine Medical Oncology
DX: C50.911 Malignant neoplasm of unspecified site of right female breast (principal); R93.89 Abnormal findings on diagnostic imaging of other specified body structures
CPT/HCPCS: 74177; Q9967